=== PATIENT | male | born 1985 | race Two or more races ===

== ENCOUNTER 2022-03-16 07:19 | Emergency (ER) | payer OTHER ==
[~2022-03-16] VITALS: Ht 172.7 cm; Wt 104.3 kg
[2022-03-16] MEDS ORDERED: OSEL75CA PO (11:29)
== END 2022-03-16 11:46 | disposition home or self-care (01) ==
LOC: ER 07:19
DX: U07.1 COVID-19 (principal); B34.9 Viral infection, unspecified

== ENCOUNTER 2022-03-18 11:49 | Outpatient (CLI) | payer OTHER ==
[~2022-03-18 11:49] MED LIST: OSEL75CA PO
== END 2022-03-18 12:24 | disposition home or self-care (01) ==
LOC: ASH CLINIC 11:49
PROVIDERS: ATTEND General Practice
DX: Z23 Encounter for immunization (principal); U07.1 COVID-19

== ENCOUNTER 2022-09-27 19:15 | Emergency (ER) | payer OTHER ==
[~2022-09-27] VITALS: Ht 172.7 cm; Wt 104.3 kg
== END 2022-09-27 21:25 | disposition home or self-care (01) ==
LOC: ER 19:15
DX: U07.1 COVID-19 (principal)

== ENCOUNTER 2022-12-03 23:55 | Emergency (ER) | payer OTHER ==
[~2022-12-03] VITALS: Ht 175.3 cm; Wt 101.2 kg
[2022-12-04] MEDS ORDERED: ORPHENADRINE C100 MG PO (03:23)
[2022-12-04] MEDS ORDERED: KETO10TA2 PO (03:23)
== END 2022-12-04 03:30 ==
LOC: ER 23:55
DX: S39.012A Strain of muscle, fascia and tendon of lower back, initial encounter (principal); X58.XXXA Exposure to other specified factors, initial encounter; Y93.9 Activity, unspecified; Y92.018 Other place in single-family (private) house as the place of occurrence of the external cause; Y99.9 Unspecified external cause status

== ENCOUNTER 2024-01-01 23:44 | Emergency (ER) | payer OTHER ==
[~2024-01-01] VITALS: Ht 172.7 cm; Wt 86.2 kg
[~2024-01-01 23:44] MED LIST changes: +KETO10TA2 PO; +ORPHENADRINE C100 MG PO
[2024-01-02] MEDS ORDERED: PAXLOVID 300-11 EAC1 PO (01:44)
[2024-01-02] MEDS ORDERED: DOLOGEN CAPLET1 EACH PO (01:44)
[2024-01-02] MEDS ORDERED: TUSNEL LIQUID178 ML PO (01:44)
[2024-01-02] MEDS ORDERED: DEXAMETHASONE SODIUM PHOSPHATE 4 MG/ML VIAL IM ONE (01:45)
[2024-01-02] MEDS ORDERED: KETOROLAC TROMETHAMINE 60 MG VIAL IM ONE (01:45)
== END 2024-01-02 01:52 | disposition home or self-care (01) ==
LOC: ER 23:44
DX: U07.1 COVID-19 (principal)